=== PATIENT | female | born 1965 | race Caucasian/White ===

== ENCOUNTER → 2018-11-22 | Outpatient (CLI) | payer SELFPAY ==
[~2018-11-22] MED LIST: BUTA1TAB46 PO; CATHETER FLUSH 10 ML SYR IV PRN; ONDAN4ODT PO; SULF1TAB38 PO
--- NOTE | 2018-11-22 15:17 | Diagnostic Imaging Report ---
INDICATION: Right-sided abdominal pain. TECHNIQUE: Patient was administered 5.3 mCi technetium-99m Choletec intravenously and imaging of the abdomen was performed. After 45 minutes, patient just had one can of Ensure and a gallbladder ejection fraction was calculated. FINDINGS: There is homogeneous uptake of activity by the liver with prompt excretion of activity into the common duct and gallbladder. Normal passage of activity into the small bowel is noted. Gallbladder ejection fraction is abnormally low at 4%. Normal values are 33% or greater. IMPRESSION: 1. No evidence of cystic duct or common bile duct obstruction. 2. Abnormally low gallbladder ejection fraction of 4%. Dictated by: Dictated on workstation # [id number]
== END ==
LOC: CARD 13:00
PROVIDERS: ATTEND Nurse Practitioner Community Health
DX: R10.9 Unspecified abdominal pain (principal)
CPT/HCPCS: 78227

== ENCOUNTER 2019-01-13 09:00 | Outpatient (CLI) | payer OTHER ==
[~2019-01-13] VITALS: Ht 162.6 cm; Wt 92.5 kg
[~2019-01-13 09:00] MED LIST changes: -CATHETER FLUSH 10 ML SYR IV PRN
--- NOTE | 2019-01-15 12:47 | Anesthesia-General Post-Op ---
General Patient Condition Mental Status/LOC: Same as Preop Cardiovascular: Satisfactory Nausea/Vomiting: Absent Respiratory: Satisfactory Pain: Controlled Complications: Absent Post Op Complications Complications None Follow Up Care/Instructions Patient Instructions None needed. Anesthesia/Patient Condition Patient Condition Patient is doing well, no complaints, stable vital signs, no apparent adverse anesthesia problems. No complications reported per nursing. RIO HUFF CRNA Jan 15, 2019 12:47
== END 2019-01-13 09:24 | disposition home or self-care (01) ==
LOC: PREOP 09:00
PROVIDERS: ATTEND Surgery
DX: Z01.818 Encounter for other preprocedural examination (principal)

== ENCOUNTER 2019-02-17 09:59 | Outpatient (CLI) | payer OTHER ==
[~2019-02-17] VITALS: Ht 162.6 cm; Wt 92.5 kg
[2019-02-20] MEDS ORDERED: ACHD5005 PO (11:41)
== END 2019-02-17 10:04 ==
LOC: PREOP 09:59
PROVIDERS: ATTEND Surgery
DX: Z01.818 Encounter for other preprocedural examination (principal); K82.8 Other specified diseases of gallbladder

== ENCOUNTER 2019-02-20 08:25 | Day surgery (SDC) | payer OTHER ==
[~2019-02-20] VITALS: Ht 162.6 cm; Wt 92.5 kg
[2019-02-20] VITALS (10 sets, daily range): BP systolic 120–161; BP diastolic 59–88
[2019-02-20] MEDS ORDERED: ceFAZolin 2 GM/50 ML NS 50 ML IV ONE (08:45)
[2019-02-20] MEDS ORDERED: CATHETER FLUSH 10 ML SYR IV PRN (09:00)
[2019-02-20] MEDS: LACTATED RINGERS 1,000 ML IV PRN ×2 (09:05→11:25)
[2019-02-20 09:10] LABS: BASOPHILS % (AUTO) 1 % (0-10); EOSINOPHILS # (AUTO) 0.1 10^3/uL (0.0-0.3); EOSINOPHILS % (AUTO) 1 % (0-10); HEMATOCRIT 43 % (35-52); HEMOGLOBIN 14.2 G/DL (11.5-16.0); LYMPHOCYTES # (AUTO) 2.5 X 10^3 (1.0-4.0); LYMPHOCYTES % (AUTO) 33 % (12-44); MEAN CORPUSCULAR HEMOGLOBIN 31 PG (25-34); MEAN CORPUSCULAR HGB CONC 33 G/DL (32-36); MEAN CORPUSCULAR VOLUME 92 FL (80-99); MEAN PLATELET VOLUME 9.5 FL (7.4-10.4); MONOCYTES # (AUTO) 0.5 X 10^3 (0.0-1.0); MONOCYTES % (AUTO) 6 % (0-12); NEUTROPHILS # (AUTO) 4.6 X 10^3 (1.8-7.8); NEUTROPHILS % (AUTO) 60 % (42-75); PLATELET COUNT 281 10^3/uL (130-400); WHITE BLOOD COUNT 7.7 10^3/uL (4.3-11.0)
[2019-02-20] MEDS ORDERED: MIDAZOLAM 2 MG/2 ML (VERSED) VIAL ONE (10:16)
[2019-02-20] MEDS ORDERED: fentaNYL INJECTION 100 MCG/2 ML AMP ONE (10:16)
[2019-02-20] MEDS ORDERED: LIDOCAINE PF 2% 5 ML (XYLOCAINE) VIAL ONE (10:16)
[2019-02-20] MEDS ORDERED: ONDANSETRON 4 MG/2 ML (SDV) Z0FRAN ONE (10:16)
[2019-02-20] MEDS ORDERED: proPOfol 200 MG/20 ML (DIPRIVAN) VIAL IV ONE (10:16)
[2019-02-20] MEDS ORDERED: DEXAMETHASONE 10 MG/ML (DECADRON) 1 ML VIAL ONE (10:16)
[2019-02-20] MEDS ORDERED: BUP/EPI 0.5% 1:200,000 (MARCAINE) 10ML VIAL IJ ONE (10:19)
[2019-02-20] MEDS ORDERED: ROCURONIUM 10 MG/ML 5 ML SYRINGE IV ONE (10:20)
[2019-02-20] MEDS ORDERED: GLYCOPYRROLATE 0.2 MG/ML (ROBINUL) 2 ML VIAL ONE (10:20)
[2019-02-20] MEDS ORDERED: SEVOFLURANE (ULTANE) 15 ML INHAL SOLN ONE ×5 (10:20→11:36)
[2019-02-20] MEDS ORDERED: NEOSTIGMINE 3 MG/3 ML VIAL ONE (10:20)
[2019-02-20] MEDS ORDERED: HYDROmorphone 2 MG/ML VIAL (DILAUDID) ONE (11:12)
[2019-02-20] MEDS ORDERED: ACHD5005 PO (11:41)
--- NOTE | 2019-02-20 11:41 | Progress Note-Post Operative ---
Post-Operative Progess Note Surgeon (s)/Steel Analyst (s) Surgeon NATE MEDEL DO Steel Analyst: Fiorella Pre-Operative Diagnosis BILIARY DYSKINESIA Post-Operative Diagnosis same Procedure & Operative Findings Date of Procedure 02/20/19 Procedure Performed/Findings Lap nirav with IOC Anesthesia Type GET Estimated Blood Loss Estimated blood loss (mL): scant Specimens/Packing Specimens Removed GB and contents NATE MEDEL DO Feb 20, 2019 11:41
[2019-02-20] MEDS ORDERED: KETOROLAC 30 MG/ML VIAL ONE (11:43)
--- NOTE | 2019-02-20 11:43 | Discharge Inst-Surgical ---
Discharge Inst-Surgical Depart Medication/Instructions New, Converted or Re-Newed RX: RX Given to Pt/Family Patient Instructions Follow up Appt: Make appointment for 1 week. [phone] Instructions: No lifting greater than 20 pounds. No strenuous activity. May shower in 24 hours, no tub bath or soaking. Use incentive spirometer at home as directed. No Smoking Skin/Wound Care: May remove bandages in am. You need to leave the Dermabond on incision it will fall off on it's own. Symptoms to Report: Appetite Changes, Extremity Discoloration, Numbness/Tingling, Swelling Increased, Bleeding Excessive, Eyesight Changes, Pain Increased, Urine Color Change, Constipation(Persistent), Fever over 101 degree F, Pain/Pressure in chest, Urinating Difficulty, Cough Up/Vomit Blood, Heart Beat Irreg/Pounding, Pain/Pressure in jaw, Cramps in feet or legs, Lightheadedness, Pain/Pressure in shoulder, Diarrhea(Persistent), Memory Changes Suddenly, Questions/Concerns, Weight gain consecutive days, Dizziness/Fainting, Nausea/Vomiting, Shortness of Breath, Weight gain over 2 pounds If questions or concerns contact your physician Or seek help at emergency department. Activity Activity as Tolerated: Yes Activity Instructions: Avoid Pulling & Pushing Driving Instructions: No Driving/Refer to Diet Discharge Diet: Avoid Fatty Foods, Low Fat/Low Cholesterol Diet After 24 Hours: Clear Liquid if Nauseous If Any Problems/Questions/Issu: Contact Your Physician, Go to Emergency Room Skin/Wound Care Infection Signs and Symptoms: Increased Redness, Foul Odor of Wound, Increased Drainage, Skin Itchy or Has a Rash, Increased Swelling, Temperature Above 101 F Wound Care Comment: Heating pad to shoulder or neck tonight for pain Bathing Instructions: Shower Stitches/[place]/Dermabond Dis: Dermabond Ice Pack: Ice On and Off Site (as needed for pain) NATE MEDEL DO Feb 20, 2019 11:43
[2019-02-20] MEDS ORDERED: ONDANSETRON 4 MG/2 ML (SDV) Z0FRAN IVP PRN (12:00)
[2019-02-20] MEDS ORDERED: HYDROmorphone 2 MG/ML VIAL (DILAUDID) IV ONE (12:00)
[2019-02-20] MEDS ORDERED: HYDROcodone/APAP 5 MG/325 MG (LORTAB) TAB ONE (13:01)
[2019-02-20] MEDS ORDERED: HYDROcodone/APAP 5 MG/325 MG (LORTAB) TAB PO ONE (13:30)
--- NOTE | 2019-02-20 13:40 | Anesthesia-General Post-Op ---
General Patient Condition Mental Status/LOC: Same as Preop Cardiovascular: Satisfactory Nausea/Vomiting: Absent Respiratory: Satisfactory Pain: Controlled Complications: Absent Post Op Complications Complications None Follow Up Care/Instructions Patient Instructions None needed. Anesthesia/Patient Condition Patient Condition Patient is doing well, no complaints, stable vital signs, no apparent adverse anesthesia problems. No complications reported per nursing. RIO HUFF CRNA Feb 20, 2019 13:39
--- NOTE | 2019-02-20 14:50 | Diagnostic Imaging Report ---
Indication: Abnormal gallbladder ejection fraction. Fluoroscopy was provided in the OR during intraoperative cholangiogram. 9 seconds of fluoroscopy was utilized. Images demonstrate contrast being injected via the cystic duct remnant. Intrahepatic and extrahepatic bile ducts are normal caliber. No filling defects are seen to suggest retained stone. Contrast passes into the duodenum. Impression: Fluoroscopy during intraoperative cholangiogram. Dictated by: Dictated on workstation # [id number]
--- NOTE | 2019-02-20 16:31 | OPERATIVE REPORT ---
DATE OF SERVICE: PREOPERATIVE DIAGNOSIS: Biliary dyskinesia. POSTOPERATIVE DIAGNOSIS: Biliary dyskinesia. PROCEDURE: Laparoscopic cholecystectomy, intraoperative cholangiogram. SURGEON: Go Parker DO PAYROLL SUPERVISOR: Dr. Barros. ANESTHESIA: General endotracheal tube. SPECIMEN: Gallbladder and contents. BLOOD LOSS: Scant. FLUIDS: Per anesthesia. POSTOPERATIVE CONDITION: Stable. INDICATION FOR PROCEDURE: The patient is a 54-year-old female who has been having right upper quadrant pain, epigastric pain and bloating, diagnosed with nonfunctioning gallbladder. I wanted to get her gallbladder removed. FINDINGS: The patient had some adhesions to the gallbladder that is usually indicative of previous gallbladder attacks, did look mildly distended as well. PROCEDURE NOTE: After informed consent was obtained, the patient was brought to the operating room, placed on the table in supine position. She was sterilely prepped and draped in normal fashion. Local lidocaine was used to infiltrate the skin above the umbilicus. Then, made an incision with #11 blade, carried down through the skin and subcutaneous tissue, deepened down to subcutaneous tissue with Bovie electrocautery down to fascia. Fascia was incised with Bovie electrocautery and bluntly entered the abdomen, swept a finger around and placed a limited trocar port under direct visualization. Created pneumoperitoneum and then placed 2 more ports in normal fashion using local lidocaine, 11 blade for stab incision and Versed system, all done under direct visualization, one subxiphoid and two in the right upper quadrant. The patient then placed slightly in reverse Trendelenburg and rotated left, able to visualize the gallbladder, grasped at the fundus and taken in superior direction, noted adhesions and pictures were taken of this. These were then carefully taken down with blunt dissection as well as with Bovie electrocautery and then once these were taken down, then able to grasp down at Harpal's pouch and pulled in inferolateral direction and started dissecting out the cystic duct and cystic artery, able to get around the cystic duct and cystic artery, placed 1 clip distally above the cystic duct and one distally and one proximally on the cystic artery, then cut the cystic duct long-term through Metzenbaum scissors. Placed a cholangiogram catheter and then shot a cholangiogram. Good spillage of dye down the common bile duct into the small intestine as well as up into common hepatic and right and left hepatics. Removed the cholangiogram catheter, placed 2 clips proximally on the cystic duct and cut the cystic duct and cystic artery with Metzenbaum scissors, then removed the gallbladder from bed of the liver with L-hook cautery. Once this was completely removed, then placed a bag in the abdomen, placed the gallbladder in the bag, then removed this through the supraumbilical incision. Placed the port back in the abdomen, copiously irrigated the liver with normal saline, suctioned this out. There was no bleeding. Took pictures of bed of the liver as well as the clips. At this point, then placed the patient supine. Elected to use a TeodoroMarcos to do a [id number] 0 Vicryl suture to close the supraumbilical incision. This was closed easily. No leakage of any pneumoperitoneum. At this point, then removed all other ports under direct visualization, allowed the pneumoperitoneum to escape as well as suctioned out. Closed the supraumbilical incision, closing it with 4-0 undyed Monocryl 3 interrupted subcuticular sutures and closed the three small 5 mm incisions with single interrupted 4-0 undyed Monocryl subcuticular suture. The area was then cleaned and dried and Dermabond placed as well as then bandaged. The patient tolerated the procedure well. Sponge, instrument and needle count correct at the end of the case. Dr. Barros assisted in this case helping to make incisions, close incisions as well as identify anatomy and hold anatomy out of the way. Job ID: [id number] DocumentID: [id number] Dictated Date: 02/20/2019 11:40:30 Underwear Trimmer Date: 02/20/2019 16:30:09 Dictated By: DO DANA OLIVAREZ
== END 2019-02-20 13:45 | disposition home or self-care (01) ==
LOC: SDC 08:25
PROVIDERS: ATTEND Surgery
DX: K81.1 Chronic cholecystitis (principal); K82.8 Other specified diseases of gallbladder; N20.0 Calculus of kidney; K21.9 Gastro-esophageal reflux disease without esophagitis; F12.90 Cannabis use, unspecified, uncomplicated; E66.01 Morbid (severe) obesity due to excess calories; Z68.35 Body mass index [BMI] 35.0-35.9, adult; Z79.899 Other long term (current) drug therapy; Z87.891 Personal history of nicotine dependence; Z79.891 Long term (current) use of opiate analgesic
CPT/HCPCS: 36415; 85025; 87081